=== PATIENT | female | born 1945 ===

== ENCOUNTER 2023-09-13 12:15 | Inpatient (IN) | payer OTHER ==
[~2023-09-13] VITALS: Ht 157.5 cm; Wt 61.2 kg
[2023-09-13] MEDS ORDERED: MULTIPLE VITAM1 EAC2 PO (13:44)
[2023-09-13] MEDS ORDERED: ALTACE5 MG PO (13:44)
[2023-09-22 14:46] LABS: HEMATOCRIT 40.2 % (36.0-45.00); HEMOGLOBIN 13.1 g/dL (12.0-15.00); MEAN CELL VOLUME 86.6 fL (80.00-100.00); MEAN CORPUSCULAR HEMOGLOBIN 28.1 pg (27.00-32.0); MEAN CORPUSCULAR HGB CONC 32.4 g/dl (32.0-36.0); PLATELET COUNT 302 K/uL (150-450); RED BLOOD COUNT 4.64 M/uL (4.00-6.00)
[2023-09-23 07:16] LABS: HEMATOCRIT 41.7 % (36.0-45.00); MEAN CELL VOLUME 85.7 fL (80.00-100.00); MEAN CORPUSCULAR HEMOGLOBIN 28.8 pg (27.00-32.0); MEAN CORPUSCULAR HGB CONC 33.6 g/dl (32.0-36.0); PLATELET COUNT 293 K/uL (150-450); RED BLOOD COUNT 4.86 M/uL (4.00-6.00); RED CELL DISTRIBUTION WIDTH 13.7 % (11.5-14.5)
[2023-09-23 07:58] LABS: ALBUMIN 3.4 gm/dL (3.4-5.0); CALCIUM 8.9 mg/dL (8.5-10.1); CREATININE SERUM 0.46 mg/dL (0.55-1.02); GFR 132.07; MAGNESIUM 1.9 mg/dL (1.8-2.4); PHOSPHOROUS 3.7 mg/dL (2.5-4.9); POTASSIUM 3.74 mEq/L (3.5-5.1)
[2023-09-25] MEDS ORDERED: HYOSCYAMINE0.125 M1 SL (11:31)
[2023-09-25] MEDS ORDERED: PEPCID AC20 MG PO (11:31)
[2023-09-25] MEDS ORDERED: TRAM1TAB98 PO (11:31)
== END 2023-09-25 12:13 | disposition home or self-care (01) | DRG 331 ==
LOC: O/R 09-22 05:35 → SURH 09-22 05:35
PROVIDERS: ADMIT Surgery; ATTEND Surgery
PROC: 0DBP4ZZ Excision of Rectum, Percutaneous Endoscopic Approach (ICD-10-PCS; 2023-09-22)
PROC: 0DJD8ZZ Inspection of Lower Intestinal Tract, Via Natural or Artificial Opening Endoscopic (ICD-10-PCS; 2023-09-22)
PROC: 0DTN4ZZ Resection of Sigmoid Colon, Percutaneous Endoscopic Approach (ICD-10-PCS; principal; 2023-09-22 07:00)
DX: K57.30 Diverticulosis of large intestine without perforation or abscess without bleeding (principal); K62.4 Stenosis of anus and rectum; K58.0 Irritable bowel syndrome with diarrhea